=== PATIENT | male | born 1990 | race Caucasian/White ===

== ENCOUNTER 2017-05-24 18:12 | Emergency (ER) | payer MEDICAID ==
[~2017-05-24] VITALS: Ht 175.3 cm; Wt 70.0 kg
[2017-05-24 18:15] VITALS: BP 104/56; PULSE 71; RESP 15; TEMP 98.1; O2SAT 100
--- NOTE | 2017-05-24 18:32 | PD ---
Physical Exam Date Seen by Provider: May 24, 2017 Time Seen by Provider: 18:32 Narrative 27- year old male presents to the ED after being bit by a dog earlier today while walking on his left medial thigh and posterior calf. The patient reports that the dog is a stray and is unsure if it is someone's pet. He is awaiting bed placement. Data Data Last Documented VS Vital Signs Date Time Temp Pulse Resp B/P (MAP) Pulse Ox O2 Delivery O2 Flow Rate FiO2 05/24/17 18:15 98.1 71 15 104/56 (72) 100 MDM Medical Record Reviewed: Yes Supervised Visit with CARLOS: No Condition: Stable Leonor Fontenot May 24, 2017 18:32
[2017-05-24] MEDS ORDERED: AUGM875T3 PO (20:53)
[2017-05-24] MEDS ORDERED: AMOXICILLIN/CLAVULANATE K 875 MG TAB PO ONE (21:00)
[2017-05-24] MEDS ORDERED: TETANUS/DIPHTHERIA TOXOID ADULT 0.5 ML VIAL IM ONE (21:00)
--- NOTE | 2017-05-24 21:02 | PD ---
HPI Chief Complaint: Bite or Sting Time Seen by Provider: 20:48 Travel History International Travel<30 days: No Contact w/Intl Traveler<30days: No Traveled to known affect area: No History of Present Illness HPI 27-year-old male presents emergency department for evaluation of a dog bite. He states that this occurred approximately 4:00 this afternoon when he was walking his son home from school. They were to lay fighting when a stray dog came up and bit him in the left leg. The manager presentation of the dog is unknown. He denies any numbness, tingling or weakness. Pain is mild. No other injuries. He has not had a tetanus shot over 5 years [facility] Past Medical History Narrative Medical Asthma Respiratory: Yes (asthma) Tetanus Vaccination: > 5 Years Past Surgical History Surgical History: No Previous Surgery Social History Alcohol Use: No Tobacco Use: No Substance Use: No Allergies-Medications (Allergen,Severity, Reaction): Coded Allergies: No Known Allergies (Verified Allergy, Unknown, 05/24/17) Reported Meds & Prescriptions Reported Meds & Active Scripts Active Augmentin (Amoxicillin-Clavulanate) 875-125 Mg Tab 1 Tab PO BID Review of Systems Except as stated in HPI: all other systems reviewed are Neg Physical Exam Narrative GENERAL: This is a well-nourished, well-developed patient, in no apparent distress. SKIN: No rashes, ecchymoses or lesions. Warm and dry. HEAD: Atraumatic. Normocephalic. EYES: PERRL, EOMI, no discharge or injection. No scleral icterus. EARS: Clear NOSE: Nasal turbinates appear normal. THROAT: Mucosa pink and moist. Airway patent. NECK: Trachea midline. supple, moves head freely. LUNGS: Clear to auscultation. CV: Regular in rhythm. ABDOMEN: Soft nontender. EXT: No clubbing cyanosis or edema. Patient has multiple puncture wounds to the left thigh and calf. These appear to be in 2 separate bite patterns with a total of 5 puncture wounds. These are superficial puncture wounds without deep injury. No neurovascular injury. No joint injury. Patient moves his leg freely. Data Data Last Documented VS Vital Signs Date Time Temp Pulse Resp B/P (MAP) Pulse Ox O2 Delivery O2 Flow Rate FiO2 05/24/17 18:15 98.1 71 15 104/56 (72) 100 Orders Orders Amoxicil-Clavulanate (Augmentin) (05/24/17 21:00) Tetanus/Diphtheria Tox Adult (Tetanus/Di (05/24/17 21:00) MDM Medical Decision Making Medical Screen Exam Complete: Yes Emergency Medical Condition: Yes Medical Record Reviewed: Yes Differential Diagnosis Differential diagnoses: Animal bite, abrasion, contusion, rabies Narrative Course Patient's bites are superficial nature. There are cleansed by the nursing staff. Dressings applied. Patient's given Augmentin 875 by mouth, Lortab 5 by mouth and a tetanus immunization. This is left leg dog bite Diagnosis Primary Impression: Dog bite of left lower leg Qualified Codes: S81.852A - Open bite, left lower leg, initial encounter; W54.0XXA - Bitten by dog, initial encounter Patient Instructions: General Instructions, Narcotic given in the ED Departure Forms: Tests/Procedures, Work Release Special Instructions: No work 2 days. Additional Instructions: Rest. Elevation. Daily wound care with soap, water and Neosporin. Three Advil every 6 hours. Augmentin. Follow-up with a primary care doctor in one week. Return to the ER for any problems. Med/Other Pt SpecificInfo: Prescription(s) given, Wound Care Scripts Amoxicillin-Clavulanate (Augmentin) 875-125 Mg Tab 1 TAB PO BID for Infection, #14 TAB 0 Refills Prov: Simone Bach MD 05/24/17 Disposition: 01 DISCHARGE HOME Condition: Stable Kody Gibbs May 24, 2017 21:02
== END 2017-05-24 21:58 | disposition home or self-care (01) ==
LOC: NEPD 18:12 → EDSEX 18:12 → NEPD 21:58
DX: S71.152A Open bite, left thigh, initial encounter (principal); J45.909 Unspecified asthma, uncomplicated; Z23 Encounter for immunization; W54.0XXA Bitten by dog, initial encounter
CPT/HCPCS: 90471; 90714

== ENCOUNTER 2018-01-10 22:55 | Emergency (ER) | payer MEDICAID ==
[~2018-01-10 22:55] MED LIST: AUGM875T3 PO
[2018-01-10 22:57] VITALS: BP 123/64; PULSE 67; RESP 16; TEMP 98.8; O2SAT 100
[2018-01-11] MEDS ORDERED: LIDOCAINE VISCOUS 2% SOLN 15 ML UDC OTHER ONE
[2018-01-11] MEDS ORDERED: CLINDAMYCIN 600 MG/NS PREMIX 50 ML IV ONE (00:15)
[2018-01-11] MEDS ORDERED: TRAM50TA PO (00:28)
[2018-01-11] MEDS ORDERED: CLIN300C5 PO (00:28)
[2018-01-11] MEDS ORDERED: IBUP-232 PO (00:29)
[2018-01-11] MEDS ORDERED: BACI500O9 TOPICAL (00:29)
--- NOTE | 2018-01-11 00:29 | PD ---
HPI Chief Complaint: GI Complaint Time Seen by Provider: 23:41 Travel History International Travel<30 days: No Contact w/Intl Traveler<30days: No Traveled to known affect area: No History of Present Illness HPI Patient is a 27-year-old male he says he is lactose intolerant he ate a bowl of cereal a few days ago and has had nonstop diarrhea he reports now that he has got a tender firm area painful on his left perirectal area. He thinks he has a hemorrhoid by looking at YouTube videos he thought he must have a hemorrhoid. He is not taking any medication he has not applied any Preparation H he is done nothing he comes to the ER with a complaint of pain and worries that he has hemorrhoids and continuing diarrhea PFSH Past Medical History Asthma: Yes Diminished Hearing: No Respiratory: Yes (asthma) Past Surgical History Surgical History: No Previous Surgery Social History Alcohol Use: Yes (OCC) Tobacco Use: No Substance Use: No Allergies-Medications (Allergen,Severity, Reaction): Coded Allergies: No Known Allergies (Verified , 05/24/17) Reported Meds & Prescriptions Reported Meds & Active Scripts Active Bacitracin Topical 500 Unit/Gm Oint 1 Applic TOPICAL BID Ibuprofen 600 Mg Tab 600 Mg PO Q6H PRN Tramadol (Tramadol HCl) 50 Mg Tab 50 Mg PO Q6H PRN Clindamycin (Clindamycin HCl) 300 Mg Cap 300 Mg PO TID Review of Systems Except as stated in HPI: all other systems reviewed are Neg General / Constitutional: No: Fever Gastrointestinal: Positive: Other (Rectal pain) Physical Exam Narrative GENERAL: non toxic appearance SKIN: Warm and dry. HEAD: Atraumatic. Normocephalic. EYES: Pupils equal and round. No scleral icterus. No injection or drainage. ENT: No nasal bleeding or discharge. Mucous membranes pink and moist. NECK: Trachea midline. No JVD. CARDIOVASCULAR: Regular rate and rhythm. RESPIRATORY: No accessory muscle use. Clear to auscultation. Breath sounds equal bilaterally. GASTROINTESTINAL: Abdomen RECTAL no hemorrhoid + left perirectal indurated area but no focus for I and D yet .Tender no raised not warm MUSCULOSKELETAL: Extremities without clubbing, cyanosis, or edema. No obvious deformities. NEUROLOGICAL: Awake and alert. No obvious cranial nerve deficits. Motor grossly within normal limits. Five out of 5 muscle strength in the arms and legs. Normal speech. PSYCHIATRIC: Appropriate mood and affect; insight and judgment normal. Data Data Last Documented VS Vital Signs Date Time Temp Pulse Resp B/P (MAP) Pulse Ox O2 Delivery O2 Flow Rate FiO2 01/10/18 22:57 98.8 67 16 123/64 (83) 100 Orders Orders Lidocaine 2% Viscous (Xylocaine 2% Visco (01/11/18 00:00) Clindamycin 600 Mg/Ns Premix (Cleocin 60 (01/11/18 00:15) Clindamycin Inj (Cleocin Inj) (01/11/18 00:45) Ketorolac Inj (Toradol Inj) (01/11/18 00:45) Ed Discharge Order (01/11/18 01:36) MDM Medical Decision Making Medical Screen Exam Complete: Yes Emergency Medical Condition: Yes Differential Diagnosis perirectal abscess vs hemorrhoids vs fissure Narrative Course pt has small preirectal abscess early no significant area of induration IV antibiotic and PO trial prior to possible need for I and D outpt surgery follow info given IV clindamycin given ,I am informed by nursing that part of the clind infiltrated to right upper arm , I am told lesss than 10cc at most extravasated Diagnosis Primary Impression: Perirectal abscess Referrals: Todd Warrne MD Patient Instructions: General Instructions, Rectal Abscess (ED) Scripts Bacitracin Topical (Bacitracin Topical) 500 Unit/Gm Oint 1 APPLIC TOPICAL BID for Infection, #30 GM 0 Refills Prov: Wayne Cano MD 01/11/18 Ibuprofen (Ibuprofen) 600 Mg Tab 600 MG PO Q6H Y for Pain/Inflammation, #40 TAB 0 Refills Prov: Wayne Cano MD 01/11/18 Tramadol (Tramadol) 50 Mg Tab 50 MG PO Q6H Y for PAIN, #10 TAB 0 Refills Prov: Wayne Cano MD 01/11/18 Clindamycin (Clindamycin) 300 Mg Cap 300 MG PO TID for Infection, #30 CAP 0 Refills Prov: Wayne Cano MD 01/11/18 Disposition: 01 DISCHARGE HOME Wayne Cano MD Jan 11, 2018 00:29
[2018-01-11] MEDS ORDERED: CLINDAMYCIN INJ 600 MG in SODIUM CHLORIDE 0.9% INJ 100 ML IV SCH (00:45)
[2018-01-11] MEDS ORDERED: KETOROLAC TROMETHAMINE 30 MG/ML (IVP) VIAL IV PUSH ONE (00:45)
== END 2018-01-11 01:37 | disposition home or self-care (01) ==
LOC: NEPE 22:55
DX: K61.1 Rectal abscess (principal); J45.909 Unspecified asthma, uncomplicated
CPT/HCPCS: 96365; 96375; 99284; J1885